=== PATIENT | female | born 1995 | race Two or more races ===

== ENCOUNTER 2016-08-13 18:08 | Emergency (ER) | payer BC ==
--- NOTE | 2016-08-13 20:05 | ER Document Report ---
ED Medical Screen (RME) - General TRAVEL OUTSIDE OF THE [place] IN LAST 30 DAYS: No <MAYNOR DENNISON - Last Filed: 08/13/16 20:01> <SANJANA KEMP - Last Filed: 08/13/16 20:46> - General Chief Complaint: Vaginal Discharge Stated Complaint: VAGINAL DISCHARGE, DISCOMFORT Time Seen by Provider: 08/13/16 19:57 Notes: 20-year-old female presents emergency department for possible vaginal infection. Patient states she got a yeast infection and she tried some Monistat [id number]. Patient states she had some relief but it returned. Patient states she has a fishy odor and discharge. Patient states she has had 2 sexual partners or unprotected and was unprotected., Patient also complains of some lower abdominal pain which she states could be from her recent menstrual cycle. Patient denies dysuria. (MAYNOR DENNISON) - Related Data Allergies/Adverse Reactions: Latex, Natural Rubber Allergy (Verified 08/13/16 19:55) Past Medical History Renal/ Medical History: Denies: Hx Peritoneal Dialysis - Immunizations Immunizations up to date: Yes Hx Diphtheria, Pertussis, Tetanus Vaccination: No <MAYNOR DENNISON - Last Filed: 08/13/16 20:01> Physical Exam <MAYNOR DENNISON - Last Filed: 08/13/16 20:01> - Respiratory Respiratory status: No respiratory distress <SANJANA KEMP - Last Filed: 08/13/16 20:46> - Vital signs Vitals: Temp Pulse Resp BP Pulse Ox 98.4 F 83 18 138/71 H 99 08/13/16 19:13 08/13/16 19:13 08/13/16 19:13 08/13/16 19:13 08/13/16 19:13 - Notes Notes: GENERAL:Alert, interacts well, no acute distress, stable vitals. (MAYNOR DENNISON ) Scribe Documentation - Scribe Written by Scribe:: Buster Morales, 08/13/16 20:00 acting as scribe for :: Oly <MAYNOR DENNISON - Last Filed: 08/13/16 20:01>
[2016-08-13 22:11] LABS: CHLAM PCR DETECTED (NOT DETECT)
[2016-08-13] MEDS ORDERED: LIDOCAINE 1% INJ-PF (10 MG/ML) 30 ML SDV INFIL ONE (22:27)
[2016-08-13] MEDS ORDERED: CEFTRIAXONE INJ 250 MG VIAL IM ONE (22:27)
[2016-08-13] MEDS ORDERED: METRONIDAZOLE 500 MG TABLET PO ONE (22:27)
[2016-08-13] MEDS ORDERED: AZITHROMYCIN 250 MG TABLET PO ONE (22:27)
--- NOTE | 2016-08-13 22:30 | ER Document Report ---
ED GI/ - General Chief Complaint: Vaginal Discharge Stated Complaint: VAGINAL DISCHARGE, DISCOMFORT Time Seen by Provider: 08/13/16 19:57 Mode of Arrival: Ambulatory Information source: Patient TRAVEL OUTSIDE OF THE [place] IN LAST 30 DAYS: No - HPI Patient complains to provider of: Vaginal discharge Onset: Other - 2 weeks Timing/Duration: Persistent Quality of pain: Achy Severity at maximum: Mild Severity in ED: Mild Location: Vaginal Vaginal bleeding (Compared to normal period): None Associated symptoms: Vaginal discharge Exacerbated by: Denies Relieved by: Denies Similar symptoms previously: No Recently seen / treated by doctor: No Notes: 08/13/16 22:41 Patient is a 20-year-old female who presents to the emergency room complaining of vaginal discharge been going on for the past few weeks, she initially thought she may have a yeast infection so she is an [id number] Monistat treatment but her symptoms have not, she reports that she smelling discharge, vaginal irritation and itching, as well as discomfort, she does admit to unprotected sex approximately 1 week ago with one partner - Related Data Allergies/Adverse Reactions: Latex, Natural Rubber Allergy (Verified 08/13/16 19:55) Past Medical History - General Information source: Patient - Social History Smoking Status: Never Smoker Family History: Reviewed & Not Pertinent Renal/ Medical History: Denies: Hx Peritoneal Dialysis - Immunizations Immunizations up to date: Yes Hx Diphtheria, Pertussis, Tetanus Vaccination: No Review of Systems - Review of Systems Constitutional: No symptoms reported EENT: No symptoms reported Cardiovascular: No symptoms reported Respiratory: No symptoms reported Gastrointestinal: No symptoms reported Genitourinary: No symptoms reported Female Genitourinary: See HPI Musculoskeletal: No symptoms reported Skin: No symptoms reported Hematologic/Lymphatic: No symptoms reported Neurological/Psychological: No symptoms reported -: Yes All other systems reviewed and negative Physical Exam - Vital signs Vitals: Temp Pulse Resp BP Pulse Ox 98.4 F 83 18 138/71 H 99 08/13/16 19:13 08/13/16 19:13 08/13/16 19:13 08/13/16 19:13 08/13/16 19:13 Interpretation: Normal - General General appearance: Appears well, Alert - HEENT Head: Normocephalic, Atraumatic Eyes: Normal Pupils: PERRL - Respiratory Respiratory status: No respiratory distress Chest status: Nontender Breath sounds: Normal Chest palpation: Normal - Cardiovascular Rhythm: Regular Heart sounds: Normal auscultation Murmur: No - Abdominal Inspection: Normal, Obese Distension: No distension Bowel sounds: Normal Tenderness: Nontender Organomegaly: No organomegaly - Genitourinary External exam: Normal Speculum exam: Cervix closed, Vaginal discharge - Greenish colored vaginal discharge with fishy odor Vaginal bleeding: None - Back Back: Normal, Nontender - Extremities General upper extremity: Normal inspection, Nontender, Normal color, Normal ROM , Normal temperature General lower extremity: Normal inspection, Nontender, Normal color, Normal ROM , Normal temperature, Normal weight bearing. No: Christine's sign - Neurological Neuro grossly intact: Yes Cognition: Normal Orientation: AAOx4 Antonio Coma Scale Eye Opening: Spontaneous [place]enn[place] Coma Scale Verbal: Oriented Antonio Coma Scale Motor: Obeys Commands Antonio Coma Scale Total: 15 Speech: Normal Motor strength normal: LUE, RUE, LLE, RLE Sensory: Normal - Psychological Associated symptoms: Normal affect, Normal mood - Skin Skin Temperature: Warm Skin Moisture: Dry Skin Color: Normal Course - Re-evaluation Re-evalutation: 08/13/16 22:42 Physical exam findings are consistent with bacterial vaginosis, patient laboratory testing came back positive for chlamydia, she was treated for both of these infections, advised to practice safe sex in the future, have any sexual partners treated prior to resuming intercourse, return to the emergency room if symptoms worsen, patient acknowledges understanding and agreement with this plan - Vital Signs Vital signs: Temp Pulse Resp BP Pulse Ox 98.4 F 83 18 138/71 H 99 08/13/16 19:13 08/13/16 19:13 08/13/16 19:13 08/13/16 19:13 08/13/16 19:13 - Laboratory Laboratory results interpreted by me: 08/13/16 20:23 Chlamydia DNA (PCR) DETECTED H Discharge - Discharge Clinical Impression: Bacterial vaginosis, Chlamydia Condition: Stable Disposition: HOME, SELF-CARE Instructions: Chlamydia (OM), Vaginosis, Bacterial (OM), [employer] Doctors Additional Instructions: Follow up with your primary care provider in one to 2 days. Return to the emergency room immediately if symptoms worsen or any additional concerns. Always practice safe sex and use a condom to protect herself from sexually transmitted diseases. Prescriptions: Metronidazole [Flagyl 500 mg Tablet] 500 mg PO TID #30 tablet
[2016-08-13 23:14] VITALS: BP 136/69
== END 2016-08-13 23:14 | disposition home or self-care (01) ==
LOC: ER 18:08
DX: A56.02 Chlamydial vulvovaginitis (principal); Z91.040 Latex allergy status
CPT/HCPCS: 99283; 96372; 87210; 81025; 87491; 87591; J3490; J0696

== ENCOUNTER 2016-08-26 11:10 | Emergency (ER) | payer BC ==
[2016-08-26 11:22] VITALS: BP 148/74
--- NOTE | 2016-08-26 12:52 | ER Document Report ---
HPI - HPI Pain Level: 0 - DERM Skin Color: Normal Past Medical History - Social History Family History: Reviewed & Not Pertinent Patient has suicidal ideation: No Patient has homicidal ideation: No Renal/ Medical History: Denies: Hx Peritoneal Dialysis - Immunizations Immunizations up to date: Yes Hx Diphtheria, Pertussis, Tetanus Vaccination: No Vertical Provider Document - INFECTION CONTROL TRAVEL OUTSIDE OF THE [place] IN LAST 30 DAYS: No - RESPIRATORY O2 Sat by Pulse Oximetry: 95 Course - Vital Signs Vital signs: Temp Pulse Resp BP Pulse Ox 98.2 F 102 H 17 148/74 H 95 08/26/16 11:20 08/26/16 11:20 08/26/16 11:20 08/26/16 11:20 08/26/16 11:20
--- NOTE | 2016-08-26 13:00 | ER Document Report ---
HPI - HPI Patient complains to provider of: vaginal irritation Onset: Other - a few days ago Onset/Duration: Persistent Quality of pain: No pain Severity: None Pain Level: 0 Context: Patient presents to the emergency department with history of BV and chlamydia. She was evaluated and treated for this on August 13. She is here for a follow-up visit today. She also reports that she thinks she may have a yeast infection now. Patient reports she has not been sexually active since her last visit. Denies other symptoms such as fever vomiting diarrhea. Associated Symptoms: None Exacerbated by: Denies Relieved by: Denies Similar symptoms previously: Yes Recently seen / treated by doctor: Yes - DERM Skin Color: Normal Past Medical History - General Information source: Patient Last Menstrual Period: 08/04/16 - Social History Smoking Status: Unknown if Ever Smoked Frequency of alcohol use: None Drug Abuse: None Family History: Reviewed & Not Pertinent Patient has suicidal ideation: No Patient has homicidal ideation: No Renal/ Medical History: Reports: Other - Chlamydia. Denies: Hx Peritoneal Dialysis Surgical Hx: Negative - Immunizations Immunizations up to date: Yes Hx Diphtheria, Pertussis, Tetanus Vaccination: No Vertical Provider Document - CONSTITUTIONAL Agree With Documented VS: Yes Exam Limitations: No Limitations General Appearance: WD/WN, No Apparent Distress - INFECTION CONTROL TRAVEL OUTSIDE OF THE [place] IN LAST 30 DAYS: No - HEENT HEENT: Atraumatic. negative: Conjuctival Injection - NECK Neck: Normal Inspection, Supple. negative: Thyroid Normal, Lymphadenopathy-Left - RESPIRATORY Respiratory: Breath Sounds Normal, No Respiratory Distress O2 Sat by Pulse Oximetry: 95 - CARDIOVASCULAR Cardiovascular: Regular Rate, Regular Rhythm - GI/ABDOMEN Gastrointestinal: Abdomen Soft, Abdomen Non-Tender - BACK Back: Normal Inspection - MUSCULOSKELETAL/EXTREMETIES Musculoskeletal/Extremeties: JAMES CHUNG - NEURO Level of Consciousness: Awake, Alert, Appropriate Motor/Sensory: No Motor Deficit - DERM Integumentary: Warm, Dry, No Rash Course - Re-evaluation Re-evalutation: 08/26/16 12:59 Will repeat pelvic exam to include but not an STD testing. 08/26/16 14:26 Instructed on twice daily and Flagyl. Patient was instructed she will be contacted should her STD cultures come back positive. She verbalized understanding. 08/26/16 16:37 STD cultures negative. Patient was instructed that she would only be contacted if they were positive. - Vital Signs Vital signs: Temp Pulse Resp BP Pulse Ox 98.2 F 102 H 17 148/74 H 95 08/26/16 11:20 08/26/16 11:20 08/26/16 11:20 08/26/16 11:20 08/26/16 12:52 Procedures - Pelvic Exam Pelvic exam Cultures obtained: Yes Wet prep obtained: Yes Herpes culture obtained: No POC sent to lab: No Foreign body removed: No Bimanual exam performed: Yes Witnessed by: shelley branch pct Notes: 08/26/16 no obvious yeast noted Discharge - Discharge Clinical Impression: Vaginal irritation, Elevated blood pressure reading, Bacterial vaginosis Condition: Stable Disposition: HOME, SELF-CARE Instructions: [facility] Department, Vaginosis, Bacterial ([facility]), Metronidazole ([facility]) Additional Instructions: *You have been evaluated for vaginal irritation, vaginosis, elevated blood pressure reading *Take medication as prescribed *Follow up with your ASSISTANT MEN'S SOCCER COACH or the health department for recheck within one week *Avoid sexual intercourse until follow up *Return to ED for worsening condition, changes, needs Monitor your blood pressure. Your blood pressure was elevated today. This may be because you were anxious, in pain or because you need medication. It is important to follow up with your primary care provider for full evaluation. Prescriptions: Metronidazole [Flagyl 500 mg Tablet] 500 mg PO BID #14 tablet Forms: Elevated Blood Pressure
[2016-08-26 14:03] LABS: APPEARANCE,URINE SLIGHTLY-CLOUDY; BILIRUBIN,URINE NEGATIVE (NEGATIVE); GLUCOSE, URINE NEGATIVE (NEGATIVE); KETONES,URINE NEGATIVE (NEGATIVE); LEUKOCYTE ESTERASE,URINE TRACE (NEGATIVE); NITRITE,URINE NEGATIVE (NEGATIVE); PROTEIN,URINE NEGATIVE (NEGATIVE); URINE SPECIFIC GRAVITY 1.028; UROBILINOGEN,URINE NEGATIVE mg/dL (<2.0)
[2016-08-26 15:21] LABS: CHLAM PCR NOT DETECTED (NOT DETECT)
== END 2016-08-26 14:37 | disposition home or self-care (01) ==
LOC: ER 11:10
DX: N76.0 Acute vaginitis (principal); B96.89 Other specified bacterial agents as the cause of diseases classified elsewhere; R03.0 Elevated blood-pressure reading, without diagnosis of hypertension
CPT/HCPCS: 81001; 81025; 87210; 87491; 87591; 99283

== ENCOUNTER 2016-09-02 08:46 | Emergency (ER) | payer BC ==
--- NOTE | 2016-09-02 09:20 | ER Document Report ---
ED General - General Chief Complaint: Vaginal Discharge Stated Complaint: VAGINAL CONCERNS Time Seen by Provider: 09/02/16 09:17 Mode of Arrival: Ambulatory Information source: Patient Notes: Presents to the emergency department with complaints of vaginal discharge, itchy , and irritation. Patient was recently seen and treated for bacterial vaginosis. She reports her symptoms started 3 weeks ago when she had sex using a latex condom. She reports since then she has been treated twice for BV but she really feels like it is a yeast infection. He did herself with over-the- counter Monistat several times. She reports she has not had any type of sexual interaction for the past month due to this. Denies other symptoms such as pain with void. She denies fever vomiting diarrhea. She reports she has not followed up with health department or her INTERNET RESEARCHER. TRAVEL OUTSIDE OF THE [place] IN LAST 30 DAYS: No - HPI Onset: Other - Related Data Allergies/Adverse Reactions: Latex, Natural Rubber Allergy (Verified 09/02/16 08:49) Past Medical History - General Information source: Patient Last Menstrual Period: july 2016 - Social History Smoking Status: Unknown if Ever Smoked Cigarette use (# per day): No Smoking Education Provided: No Frequency of alcohol use: None Drug Abuse: None Occupation: unemployed Family History: Reviewed & Not Pertinent Patient has suicidal ideation: No Patient has homicidal ideation: No - Medical History Medical History: Negative Renal/ Medical History: Denies: Hx Peritoneal Dialysis Surgical Hx: Negative - Immunizations Immunizations up to date: Yes Hx Diphtheria, Pertussis, Tetanus Vaccination: No Review of Systems - Review of Systems Notes: Review HPI for review of systems., All other systems negative Physical Exam - Vital signs Vitals: Temp Pulse Resp BP Pulse Ox 97.8 F 72 16 113/89 H 98 09/02/16 08:53 09/02/16 08:53 09/02/16 08:53 09/02/16 08:53 09/02/16 08:53 - Notes Notes: PHYSICAL EXAMINATION: GENERAL: Well-appearing and in no acute distress HEAD: Atraumatic, normocephalic. EYES: Pupils equal round and reactive to light, extraocular movements intact, sclera anicteric, conjunctiva are normal. ENT: nares patent, oropharynx clear without exudates. Moist mucous membranes. NECK: Normal range of motion, supple without lymphadenopathy LUNGS: CTAB and equal. No wheezes rales or rhonchi. HEART: Regular rate and rhythm without murmurs ABDOMEN: Soft, no tenderness. No guarding, no rebound EXTREMITIES: Normal range of motion, no pitting edema. No cyanosis. NEUROLOGICAL: Cranial nerves grossly intact. Normal sensory/motor exams. PSYCH: Normal mood, normal affect. SKIN: Warm, Dry, normal turgor, no rashes or lesions noted - Genitourinary External exam: Normal Speculum exam: Vaginal discharge Vaginal bleeding: None Bimanuel exam: Normal Course - Re-evaluation Re-evalutation: 09/02/16 10:13 Patient's third visit for the same symptoms. Although the vaginal exam does not show discharge consistent with yeast infection she does display symptoms of a yeast infection-irritation itchiness.. I will treat her with Diflucan. Patient will not be waiting for her wet mount or STD results. I will contact her should she need any further treatment. 09/02/16 12:33 Budding yeast noted on wet mount GC chlamydia negative. Patient has been treated with Diflucan. - Vital Signs Vital signs: Temp Pulse Resp BP Pulse Ox 98.6 F 71 16 117/75 98 09/02/16 10:07 09/02/16 10:07 09/02/16 10:07 09/02/16 10:07 09/02/16 10:07 Procedures - Pelvic Exam Pelvic exam Cultures obtained: Yes Wet prep obtained: Yes Herpes culture obtained: No POC sent to lab: No Foreign body removed: No Bimanual exam performed: Yes Witnessed by: ignacia grier Discharge - Discharge Clinical Impression: Vaginal irritation Condition: Stable Disposition: HOME, SELF-CARE Instructions: [facility] Department, Fluconazole ([facility]), Vaginal Yeast Infection ([facility]) Additional Instructions: *You have been evaluated for vaginal irritation *You will be contacted for positive STD results *Today you have been treated with Diflucan for yeast infection *Follow up with your NUTRITION COORDINATOR or the health department for recheck within 1 week *Avoid sexual intercourse until follow up *Return to ED for worsening condition, changes, needs
[2016-09-02] MEDS ORDERED: FLUCONAZOLE 100 MG TABLET PO ONE (09:51)
[2016-09-02 10:27] VITALS: BP 117/75
[2016-09-02 11:33] LABS: CHLAM PCR NOT DETECTED (NOT DETECT)
== END 2016-09-02 10:26 | disposition home or self-care (01) ==
LOC: ER 08:46
DX: N89.8 Other specified noninflammatory disorders of vagina (principal); B37.9 Candidiasis, unspecified; Z91.040 Latex allergy status
CPT/HCPCS: 87210; 87491; 87591; 99283

== ENCOUNTER 2017-11-01 09:53 | Outpatient (CLI) | payer MEDICAID ==
[2017-11-01 11:00] LABS: URINE AMPHETAMINES SCREEN NEGATIVE; URINE BARBITURATES SCREEN NEGATIVE; URINE BENZODIAZEPINES SCREEN NEGATIVE; URINE COCAINE SCREEN NEGATIVE; URINE MARIJUANA (THC) SCREEN NEGATIVE; URINE METHADONE SCREEN NEGATIVE; URINE PHENCYCLIDINE SCREEN NEGATIVE
[2017-11-01 11:02] LABS: APPEARANCE,URINE SLIGHTLY-CLOUDY; BILIRUBIN,URINE NEGATIVE (NEGATIVE); COLOR,URINE YELLOW; GLUCOSE, URINE NEGATIVE (NEGATIVE); KETONES,URINE NEGATIVE (NEGATIVE); LEUKOCYTE ESTERASE,URINE MODERATE (NEGATIVE); NITRITE,URINE NEGATIVE (NEGATIVE); PROTEIN,URINE NEGATIVE (NEGATIVE); URINE SPECIFIC GRAVITY 1.012; UROBILINOGEN,URINE NEGATIVE mg/dL (<2.0)
--- NOTE | 2017-11-01 11:14 | Non Stress Test Report ---
Non Stress Test Datetime Report Generated by CPN: 11/01/2017 11:14 DEMOGRAPHIC EGA NST: 34.1 INDICATION Indication for Study: Ordered by Provider MONITORING Monitor Explained: Monitor Explained; Test Explained; Patient Verbalized Understanding Time on Monitor: 11/01/2017 10:23 Time off Monitor: 11/01/2017 11:08 NST Duration: 45 NST INTERVENTIONS NST Interventions: None Physician Notified NST: Dr. Elizabeth Rolando BABY A: [id number] BABY A Movement : Present Contraction Frequency : none FHR Baseline : 145 Accelerations : 15X15 Decelerations : None Variability : Moderate 6-25bpm NST Review: Meets Criteria for Reactive NST NST Review and Verified By : Ruslan Lopez RN NST Results: Reactive NST REPORT Report Trigger: Send Report
== END 2017-11-01 11:27 | disposition home or self-care (01) ==
LOC: LC 09:53
PROVIDERS: ATTEND Obstetrics & Gynecology
PROC: 4A1HXCZ Monitoring of Products of Conception, Cardiac Rate, External Approach (ICD-10-PCS; principal; 2017-11-01)
DX: O47.03 False labor before 37 completed weeks of gestation, third trimester (principal); Z3A.34 34 weeks gestation of pregnancy
CPT/HCPCS: 59025; 80307; 81001; 84112